=== PATIENT | female | born 1950 ===

== ENCOUNTER 2018-05-10 05:20 | Inpatient (IN) ==
[2018-05-10] MEDS ORDERED: SODIUM CHLORIDE 0.9% 1,000 ML IV STA ×2 (06:12→08:11)
[2018-05-10 06:31] LABS: Basophils # 0.2 10*3/uL (0.0-0.2); Basophils % 1.1 % (0.0-0.8); Eosinophils # 0.7 10*3/uL (0.0-0.87); Eosinophils % 4.9 % (0.00-10.9); Hemoglobin 10.1 GM/DL (12.0-16.0); Immature Granulocytes % 1.2 %; Immature Granulocytes Absolute 0.16 #; Lymphocytes # 2.1 10*3/uL (1.4-4.0); Lymphocytes % 14.9 % (21.3-54.2); Mean Corpuscular HGB Conc 29.1 GM/DL (32-36); Mean Corpuscular Hemoglobin 31 PG (27-34); Mean Corpuscular Volume 104.8 FL (87-102); Mean Platelet Volume 9.6 FL (9.6-12.0); Monocytes # 0.5 10*3/uL (0.11-0.8); Monocytes % 3.9 % (1.7-12.7); Neutrophils # 10.2 10*3/uL (1.4-7.4); Platelet Count 508 T/CUMM (130-400); Red Blood Count 3.31 MC/CUMM (3.8-5.5); Red Cell Distribution Width 14.4 % (9.3-17.3); White Blood Count 13.8 T/CUMM (4-12)
[2018-05-10 06:36] LABS: Hematocrit 34.6 VOL% (35.7-47.0)
[2018-05-10 06:47] LABS: Apearance,Urine Slightly Hazy (Clear); Bilirubin,Urine Negative (Negative); Blood, Urine Negative (Negative); Glucose,Urine (UA) >=500 mg/dL (Negative); Ketones,Urine 80 mg/dL (Negative); Nitrite,Urine Negative (Negative); Protein,Urine Negative; RBC,Urine 7 /HPF (0-4); Squamous Epithelial Cell,Urine Occasional /HPF (0-10); Urine Color Straw (Yellow); Urine Urobilinogen < 2.0 EU/DL (0.2-1.0); WBC,Urine 43 /HPF (0-6)
[2018-05-10 07:00] LABS: Albumin 3.5 G/DL (3.4-5.0); Bilirubin,Total 1.2 MG/DL (0.2-1.0); Calcium 8.9 MG/DL (8.5-10.1); Osmolality,Calculated 293.4 MOS/KG (273-304); Potassium 5.4 MMOL/L (3.5-5.1)
[2018-05-10] MEDS ORDERED: INSULIN REGULAR 100 UNIT/ML IV STA (07:09)
[2018-05-10] MEDS ORDERED: LEVOFLOXACIN INJ 500 MG in PREMIX 1 EACH IV STA (09:07)
[2018-05-10] MEDS ORDERED: GLUCAGON 1 MG VIAL IM PRN (09:20)
[2018-05-10] MEDS ORDERED: DEXTROSE 50% 25 GM/50 ML VIAL IV PRN (09:20)
[2018-05-10 09:39] LABS: ABG Base Excess -18.8 MMOL/L (-2.5-2.5); ABG HCO3 10.4 MMOL/L (20-26); ABG PCO2 23.8 MM HG (35-48); ABG TCO2 8.2 MMOL/L (23-27)
[2018-05-10 09:41] LABS: ABG PH 7.168 (7.35-7.45)
[2018-05-10] MEDS ORDERED: INSULIN REGULAR 100 UNIT/ML SUBCUT SCH (10:00)
[2018-05-10] MEDS: SODIUM CHLORIDE 0.9% 1,000 ML IV SCH ×2 (10:35→18:10)
[2018-05-10] MEDS ORDERED: SODIUM CHLORIDE 0.9% 1,000 ML IV SCH (12:05)
[2018-05-10] MEDS ORDERED: ACETAMINOPHEN 325 MG TABLET PO PRN (12:05)
[2018-05-10] MEDS: PANTOPRAZOLE 40 MG TABLET PO SCH (12:30)
[2018-05-10] MEDS: LEVOTHYROXINE 150 MCG TABLET PO SCH (12:30)
[2018-05-10] MEDS: ENOXAPARIN 40 MG/0.4 ML SYRINGE SUBCUT SCH (12:30)
[2018-05-10] MEDS: INSULIN REGULAR 100 UNIT/ML SUBCUT SCH ×3 (13:04→20:14)
[2018-05-10 13:08] LABS: Calcium 7.8 MG/DL (8.5-10.1); Osmolality,Calculated 288.5 MOS/KG (273-304); Potassium 4.6 MMOL/L (3.5-5.1)
[2018-05-10 18:07] LABS: Osmolality,Calculated 278.4 MOS/KG (273-304); Potassium 4.5 MMOL/L (3.5-5.1)
[2018-05-10] MEDS: INSULIN GLARGINE 100 UNIT/ML SUBCUT SCH (18:27)
[2018-05-10] MEDS: DEXTROSE 5% LACTATED RINGERS 1,000 ML IV SCH (19:30)
[2018-05-10] MEDS: CARVEDILOL 6.25 MG TABLET PO SCH (20:14)
[2018-05-10] MEDS: MAGNESIUM SULF RIDER 2 GM in PREMIX 1 EACH IV PRN (20:15)
[2018-05-11] MEDS: INSULIN REGULAR 100 UNIT/ML SUBCUT SCH ×6 (00:09→21:33)
[2018-05-11 01:26] LABS: Calcium 7.9 MG/DL (8.5-10.1); Osmolality,Calculated 288.7 MOS/KG (273-304); Potassium 4.5 MMOL/L (3.5-5.1)
[2018-05-11 05:14] LABS: Basophils # 0.1 10*3/uL (0.0-0.2); Basophils % 0.6 % (0.0-0.8); Eosinophils # 0.5 10*3/uL (0.0-0.87); Eosinophils % 4.9 % (0.00-10.9); Hematocrit 28.9 VOL% (35.7-47.0); Hemoglobin 8.8 GM/DL (12.0-16.0); Immature Granulocytes % 0.5 %; Immature Granulocytes Absolute 0.05 #; Lymphocytes # 1.5 10*3/uL (1.4-4.0); Lymphocytes % 15.7 % (21.3-54.2); Mean Corpuscular HGB Conc 30.4 GM/DL (32-36); Mean Corpuscular Hemoglobin 30 PG (27-34); Mean Platelet Volume 10.2 FL (9.6-12.0); Monocytes # 0.5 10*3/uL (0.11-0.8); Monocytes % 4.8 % (1.7-12.7); Neutrophils # 6.9 10*3/uL (1.4-7.4); Neutrophils % 73.5 % (38.7-73.9); Platelet Count 396 T/CUMM (130-400); Red Blood Count 2.89 MC/CUMM (3.8-5.5); Red Cell Distribution Width 14.3 % (9.3-17.3); White Blood Count 9.4 T/CUMM (4-12)
[2018-05-11] MEDS: DEXTROSE 5% LACTATED RINGERS 1,000 ML IV SCH ×2 (05:14→17:48)
[2018-05-11 05:36] LABS: Risk Ratio 2.36; Thyroid Stimulating Hormone 0.473 uIU/ml (0.358-3.74); VLDL CHOLESTEROL 31.6 MG/DL
[2018-05-11 05:57] LABS: Troponin I < 0.015 NG/ML (0.00-0.045)
[2018-05-11] MEDS: CARVEDILOL 6.25 MG TABLET PO SCH ×2 (08:02→20:46)
[2018-05-11] MEDS: PANTOPRAZOLE 40 MG TABLET PO SCH (08:02)
[2018-05-11] MEDS: LEVOTHYROXINE 150 MCG TABLET PO SCH (08:02)
[2018-05-11] MEDS: LEVOFLOXACIN INJ 500 MG in PREMIX 1 EACH IV SCH (08:04)
[2018-05-11 08:54] LABS: Calcium 8.3 MG/DL (8.5-10.1); Osmolality,Calculated 278.8 MOS/KG (273-304); Potassium 4.9 MMOL/L (3.5-5.1)
[2018-05-11] MEDS ORDERED: INSULIN LISPRO 100 UNIT/ML ONE (12:33)
[2018-05-11] MEDS: ENOXAPARIN 40 MG/0.4 ML SYRINGE SUBCUT SCH (12:34)
[2018-05-11] MEDS ORDERED: INSULIN LISPRO 100 UNIT/ML SUBCUT ONE (12:40)
[2018-05-11] MEDS: INSULIN GLARGINE 100 UNIT/ML SUBCUT SCH (17:47)
[2018-05-12] MEDS: INSULIN REGULAR 100 UNIT/ML SUBCUT SCH ×5 (00:33→15:33)
[2018-05-12 05:13] LABS: Calcium 8.4 MG/DL (8.5-10.1); Osmolality,Calculated 280.5 MOS/KG (273-304); Potassium 4.1 MMOL/L (3.5-5.1)
[2018-05-12] MEDS: LEVOFLOXACIN INJ 500 MG in PREMIX 1 EACH IV SCH (08:15)
[2018-05-12] MEDS: LEVOTHYROXINE 150 MCG TABLET PO SCH (08:16)
[2018-05-12] MEDS: PANTOPRAZOLE 40 MG TABLET PO SCH (08:16)
[2018-05-12] MEDS: CARVEDILOL 6.25 MG TABLET PO SCH ×2 (08:17→21:12)
[2018-05-12] MEDS: ONDANSETRON 4 MG/2 ML VIAL IV PRN ×2 (08:29→15:34)
[2018-05-12] MEDS: ENOXAPARIN 40 MG/0.4 ML SYRINGE SUBCUT SCH (12:01)
[2018-05-12] MEDS: MAGNESIUM SULF RIDER 2 GM in PREMIX 1 EACH IV PRN (12:01)
[2018-05-12] MEDS: INSULIN GLARGINE 100 UNIT/ML SUBCUT SCH (15:33)
[2018-05-12] MEDS: DEXTROSE 5% LACTATED RINGERS 1,000 ML IV SCH (15:39)
[2018-05-12] MEDS ORDERED: FLUCONAZOLE 150 MG TABLET PO ONE (20:00)
[2018-05-12] MEDS ORDERED: ATORVASTATIN 40 MG TABLET PO SCH (21:00)
[2018-05-12] MEDS: INSULIN LISPRO 100 UNIT/ML SUBCUT SCH (21:13)
[2018-05-13 05:23] LABS: Calcium 8.1 MG/DL (8.5-10.1); Osmolality,Calculated 289.3 MOS/KG (273-304)
[2018-05-13] MEDS: INSULIN LISPRO 100 UNIT/ML SUBCUT SCH ×3 (08:33→17:12)
[2018-05-13] MEDS: LEVOTHYROXINE 150 MCG TABLET PO SCH (08:34)
[2018-05-13] MEDS: CARVEDILOL 6.25 MG TABLET PO SCH (08:34)
[2018-05-13] MEDS: PANTOPRAZOLE 40 MG TABLET PO SCH (08:34)
[2018-05-13] MEDS: ENOXAPARIN 40 MG/0.4 ML SYRINGE SUBCUT SCH (12:37)
[2018-05-13 16:18] VITALS: BP 153/77
[2018-05-13] MEDS: INSULIN GLARGINE 100 UNIT/ML SUBCUT SCH (17:12)
== END 2018-05-13 17:32 | disposition home or self-care (01) | DRG 638 ==
LOC: N.ED 05:20 → SUATTDRO 09:10 → N.EDINP 09:18 → N.ICU 11:35 → N.4E 05-11 18:32
PROVIDERS: ADMIT Internal Medicine; ATTEND Internal Medicine